=== PATIENT | male | born 1940 | race Caucasian/White ===

== ENCOUNTER → 2017-03-05 | Outpatient (CLI) | payer OTHER ==
[~2017-03-05] MED LIST: ALTACE10 M1; ALTACE10 MG PO; ASPIRIN325 PO; ASPRIMOX 325 M325 MG; CALCIUM PHOSPH PO; CELEBREX 200 M200 M1 PO; CLARITIN10 MG PO; DAILY GARLIC O400 MG PO; DULCOLAX5 MG PO; FISH OIL 1,0001 EAC8 PO; FLOMAX0.4 MG PO; GABAPENTIN 100100 MG PO; GARLIC OIL1000 MG PO; HYDROCHLOROTHIA25 M2 PO; HYDROCODONE-APA1 TA1 PO; LASIX 40 MG TAB40 M2 PO; LOPRESSOR100 M1 PO; LORTAB 5 MG/5001 TA1; MOBIC15 MG PO; NATURAL CALCIU500 M1 PO; NORCO 10-325 T1 EACH PO; OMEPRAZOLE40 MG PO; PANTOPRAZOLE SO40 M1 PO; POTASSIUM99 M1 PO; SIMVASTATIN40 MG PO; TOPROL XL100 MG PO; TRAMADOL HCL50 MG PO; UNICOMPLEX M TA1 TA1 PO; VENTOLIN HFA 1818 GM INH
== END ==
LOC: RAD 10:52
DX: M47.894 Other spondylosis, thoracic region (principal); S22.009D Unspecified fracture of unspecified thoracic vertebra, subsequent encounter for fracture with routine healing; X58.XXXD Exposure to other specified factors, subsequent encounter